=== PATIENT | female | born 1955 | race Caucasian/White ===

== ENCOUNTER 2017-07-27 11:16 | Emergency (ER) | payer OTHER | END 2017-07-27 17:50 | disposition home or self-care (01) | LOC: FTE 11:16 | DX: J40 Bronchitis, not specified as acute or chronic (principal); I10 Essential (primary) hypertension | CPT/HCPCS: 71045; 99283-25 ==

== ENCOUNTER 2018-05-15 15:32 | Emergency (ER) | payer OTHER | END 2018-05-15 17:27 | disposition home or self-care (01) | LOC: FTE 15:32 | DX: H11.31 Conjunctival hemorrhage, right eye (principal); I10 Essential (primary) hypertension | CPT/HCPCS: 99282; Z7502 ==

== ENCOUNTER 2018-08-20 12:43 | Emergency (ER) | payer OTHER ==
[2018-08-20] MEDS: ACETAMINOPHEN 325 MG TAB PO (13:16)
[2018-08-20] MEDS: LIDOCAINE 1% (MDV) 20 ML INJ SC (13:18)
== END 2018-08-20 15:27 | disposition home or self-care (01) ==
LOC: FTE 12:43
DX: L60.0 Ingrowing nail (principal); I10 Essential (primary) hypertension
CPT/HCPCS: 11750; 73660; 99283-25